=== PATIENT | male | born 1940 | race Caucasian/White ===

== ENCOUNTER → 2016-10-11 | Outpatient (CLI) | payer OTHER ==
[~2016-10-11] MED LIST: AMLO-110 PO; ASCA500 PO; ASPI81TA28 PO; ATOR10TA82 PO; BARB1CAP PO; BNC40 PO; CALC600T37 PO; CHOL100010 PO; CHOL1TAB42 PO; CHOLEAST PO; CIPR-255 PO; CMD5 PO; COEN150C PO; CYAN500T PO; ERGO500011 PO; FINA5TAB PO; FLM4 PO; FLV400 PO; HALO0.052 TOP; HYDR-5688 PO; LORA-741 PO; LOSA1TAB38 PO; LUTEIN PO; MISCTAB27 PO; MULT-506 PO; MULTI; NIAC500T11 PO; OMEG10007 PO; POLYSOL4 OPB; PRAS50CA3 PO; RIVA1TAB PO; SAW1CAP11 PO; SILO8CAP PO; TESTOSTERONE 50 MG; ZEAXANTHIN PO; ZINC PO; [UNRECOGNIZED DRUG - CODE] PO; [UNRECOGNIZED DRUG - OTHER]; [UNRECOGNIZED DRUG - OTHER]; [UNRECOGNIZED DRUG - OTHER]; [UNRECOGNIZED DRUG - OTHER]; [UNRECOGNIZED DRUG - OTHER]; [UNRECOGNIZED DRUG - OTHER]; [UNRECOGNIZED DRUG - OTHER] PO; [UNRECOGNIZED DRUG - OTHER] PO; [UNRECOGNIZED DRUG - OTHER] PO
[2016-10-11 12:41] LABS: ALT/SGPT 37 U/L (12-78); AST/SGOT 17 U/L (15-37); BLOOD UREA NITROGEN 20 mg/dl (7-18); BUN/CREATININE RATIO 21.4 (10-20); CARBON DIOXIDE 27 mmol/L (21-32); CHLORIDE 108 mmol/L (98-107); CHOLESTEROL 169 mg/dl (0-200); CREATININE 0.94 mg/dl (0.60-1.40); GLUCOSE 99 mg/dl (70-99); POTASSIUM 4.3 mmol/L (3.5-5.1); SODIUM 140 mmol/L (136-145); TRIGLYCERIDES 189 mg/dl (0-150); VERY LOW DENSITY LIPOPROT CALC 38 mg/dl
[2016-10-11 12:45] LABS: CALCIUM 8.8 mg/dl (8.5-10.1)
[2016-10-11 12:46] LABS: CHOLESTEROL/HDL RATIO 4.2; HDL CHOLESTEROL 40 mg/dl; LDL CHOLESTEROL CALCULATED 91 mg/dl
== END | disposition home or self-care (01) ==
LOC: C.LAB1850 09:23
PROVIDERS: ATTEND Internal Medicine
DX: E55.9 Vitamin D deficiency, unspecified (principal); I10 Essential (primary) hypertension; R97.20 Elevated prostate specific antigen [PSA]; E78.5 Hyperlipidemia, unspecified; I65.29 Occlusion and stenosis of unspecified carotid artery

== ENCOUNTER → 2016-10-23 | Outpatient (CLI) | payer OTHER ==
[2016-10-23 13:26] LABS: BASO % 0.4 %; BASO ABS # 0.02 K/uL (0-0.2); COMPLETE YES; EOS % 0.5 %; HEMATOCRIT 44.9 % (42-52); IG% 0.7 %; LYMPH % 23.5 %; LYMPH ABS # 1.33 K/uL (1.2-3.4); MEAN CELL VOLUME 90.5 fL (80-100); MEAN CORPUSCULAR HGB CONC 34.3 g/dl (32-36); MEAN PLATELET VOLUME 9.9 fL (7.4-10.4); MONO % 6.9 %; PLATELET COUNT 156 K/uL (130-400); RED BLOOD COUNT 4.96 M/uL (4.7-6.1); WHITE BLOOD COUNT 5.67 K/uL (4.8-10.8)
--- NOTE | 2016-10-30 07:04 | CODING QUERY MEDICAL NECESSITY ---
SUPPORTING DIAGNOSIS NEEDED Dr. Tolbert, A supporting diagnosis is required for the test/procedure performed on this patient in order for us to be reimbursed by the patient's insurance. Please provide a supporting diagnosis for the following test/procedure listed below next to the test name along with your signature. *If there is no additional diagnosis for this patient that would support the following test/procedure please document that below next to the test/procedure. Test(s)/Procedure(s) that require a supporting diagnosis: * ([id number]) B12 VITAMIN LEVEL DIAGNOSIS: DATE OF SERVICE: 10/23/16 Provider Signature: Date: Thank you [facility] Information Management Once completed, please kindly fax back to [phone] For questions please call [phone]
== END | disposition home or self-care (01) ==
LOC: C.LAB1850 11:50
PROVIDERS: ATTEND Internal Medicine
DX: R53.83 Other fatigue (principal)

== ENCOUNTER 2016-11-23 10:05 | Emergency (ER) | payer OTHER ==
[~2016-11-23] VITALS: Ht 172.7 cm; Wt 95.8 kg
[~2016-11-23 10:05] MED LIST changes: -AMLO-110 PO; -ASPI81TA28 PO; -BARB1CAP PO; -CALC600T37 PO; -CHOL1TAB42 PO; -CHOLEAST PO; -CIPR-255 PO; -COEN150C PO; -ERGO500011 PO; -FINA5TAB PO; -HALO0.052 TOP; -HYDR-5688 PO; -LORA-741 PO; -LOSA1TAB38 PO; -LUTEIN PO; -MISCTAB27 PO; -MULT-506 PO; -POLYSOL4 OPB; -PRAS50CA3 PO; -RIVA1TAB PO; -SAW1CAP11 PO; -SILO8CAP PO; -ZEAXANTHIN PO; -ZINC PO; -[UNRECOGNIZED DRUG - OTHER] PO; -[UNRECOGNIZED DRUG - OTHER] PO; -[UNRECOGNIZED DRUG - OTHER] PO
[2016-11-23 10:10] VITALS: TEMP 36.6; Ht 172.7 cm; Wt 95.8 kg
[2016-11-23] MEDS ORDERED: SODIUM CHLORIDE 0.9% 500ML 500 ML IV STA (10:24)
[2016-11-23] MEDS ORDERED: OPTIRAY 320 IV PRN (10:30)
[2016-11-23] MEDS ORDERED: ERGO500011 PO (10:43)
[2016-11-23] MEDS ORDERED: CALC600T37 PO (10:43)
[2016-11-23] MEDS ORDERED: OMEG10007 PO (10:43)
[2016-11-23] MEDS ORDERED: ASPI81TA28 PO (10:43)
[2016-11-23] MEDS ORDERED: LORA-741 PO (10:47)
[2016-11-23] MEDS ORDERED: AMLO-110 PO (10:47)
[2016-11-23] MEDS ORDERED: SILO8CAP PO (10:47)
[2016-11-23] MEDS ORDERED: MULT-506 PO (10:47)
[2016-11-23] MEDS ORDERED: FINA5TAB PO (10:47)
[2016-11-23] MEDS ORDERED: SAW1CAP11 PO (10:47)
[2016-11-23] MEDS ORDERED: LOSA1TAB38 PO (10:47)
[2016-11-23] MEDS ORDERED: HALO0.052 TOP (10:48)
[2016-11-23 10:54] LABS: PROTHROMBIN TIME (PATIENT) 10.6 SECONDS (9.0-12.0)
[2016-11-23 11:02] LABS: BASO % 0.2 %; BASO ABS # 0.01 K/uL (0-0.2); COMPLETE YES; EOS % 0.7 %; HEMATOCRIT 42.8 % (42-52); IG% 0.7 %; LYMPH % 22.4 %; LYMPH ABS # 1.25 K/uL (1.2-3.4); MEAN CELL VOLUME 89.4 fL (80-100); MEAN CORPUSCULAR HEMOGLOBIN 31.7 pg (25-34); MEAN CORPUSCULAR HGB CONC 35.5 g/dl (32-36); MEAN PLATELET VOLUME 10.2 fL (7.4-10.4); MONO % 7.9 %; NEUT % 68.1 %; PLATELET COUNT 156 K/uL (130-400); RED BLOOD COUNT 4.79 M/uL (4.7-6.1); WHITE BLOOD COUNT 5.58 K/uL (4.8-10.8)
[2016-11-23 11:10] LABS: ALT/SGPT 40 U/L (12-78); AST/SGOT 22 U/L (15-37); BLOOD UREA NITROGEN 20 mg/dl (7-18); BUN/CREATININE RATIO 21.7 (10-20); CALCIUM 8.4 mg/dl (8.5-10.1); CARBON DIOXIDE 28 mmol/L (21-32); CHLORIDE 106 mmol/L (98-107); CREATININE 0.92 mg/dl (0.60-1.40); GLUCOSE 91 mg/dl (70-99); POTASSIUM 4.1 mmol/L (3.5-5.1); SODIUM 141 mmol/L (136-145)
[2016-11-23 11:15] LABS: ALKALINE PHOSPHATASE 87 U/L (45-117)
--- NOTE | 2016-11-23 12:15 | DIAGNOSTIC IMAGING REPORT ---
CT ANGIOGRAM OF THE CHEST CLINICAL HISTORY: Shortness of breath and the left lower extremity swelling. COMPARISON STUDY: 07/16/2011 TECHNIQUE: Following the IV administration of 93 mL of Optiray-320, CT angiogram of the thorax was performed from the thoracic inlet to the lung bases utilizing the pulmonary embolus protocol. Images are reviewed in the axial, sagittal, and coronal planes. IV contrast was administered without complication. MIP imaging was performed. CT DOSE: 562.50 mGycm FINDINGS: No pathologically enlarged axillary mediastinal or hilar lymph nodes were visualized. There was no evidence of thoracic aortic dilatation. There were no pulmonary artery filling defects to indicate acute pulmonary embolism. No pleural effusions are visualized. There was no evidence of focal pulmonary consolidation. There is a 5 mm right middle lobe pulmonary nodule. This nodule measured 4 mm in June 2011, and is therefore in all likelihood benign. IMPRESSION: 1. No evidence of acute pulmonary embolism 2. No evidence of focal pulmonary consolidation Electronically signed by: Shawn Cullen M.D. 11/23/2016 12:13 PM Dictated Date/Time: 11/23/2016 12:03 PM
--- NOTE | 2016-11-23 12:27 | DIAGNOSTIC IMAGING REPORT ---
BILATERAL LOWER EXTREMITY VENOUS DOPPLER HISTORY: swelling of lower extremities w/ known clot COMPARISON STUDY: None. FINDINGS: There is normal compressibility, flow, and augmentation within the bilateral lower extremity deep venous systems. Multiple superficial varicosities which are thrombosed within the left lower extremity. IMPRESSION: No DVT within the right or left lower extremity. Multiple thrombosed superficial varicosities within the left lower extremity. Electronically signed by: Bhanu Corcoran M.D. 11/23/2016 12:25 PM Dictated Date/Time: 11/23/2016 12:22 PM
[2016-11-23] MEDS ORDERED: RIVAROXABAN 10 MG TAB PO STA (13:30)
[2016-11-23] MEDS ORDERED: RIVA1TAB PO (14:38)
[2016-11-23 15:05] VITALS: BP 157/86; PULSE 60; O2SAT 97
--- NOTE | 2016-11-23 15:10 | EMERGENCY ROOM VISIT NOTE ---
History Report prepared by Cheryl: Deon Mann Under the Supervision of: Dr. Wellington Jain D.O. First contact with patient: 10:09 Chief Complaint: LEG PAIN,LEG INJURY Stated Complaint: LEFT LEG PAIN-FLIBITUS History of Present Illness The patient is a 76 year old male who presents to the Emergency Room with complaints of constant left leg pain beginning three days ago. He was seen in the ED in [place] for his symptoms three days ago. He had a Doppler and was found to have superficial thrombophlebitis. The patient notes that he flew to [place] about 10 days ago. He notes that he has experienced some shortness of breath. His shortness of breath occurred yesterday. Pt denies headache, change in vision, fevers, chest pain, nausea, vomiting, diarrhea, pain with urination, and melena. He has a pacemaker in place, and notes that he had it examined this past week. He has a history of PE last year following a surgery. Denies any history of diabetes or stroke. Patient has no other complaints at this time. No exertional chest pain. Source of History: patient Onset: three days ago Position: leg (left) Timing: constant Associated Symptoms: + SOB, No fevers, No chest pain, No nausea, No vomiting , No diarrhea, No urinary symptoms Review of Systems See HPI for pertinent positives & negatives. A total of 10 systems reviewed and were otherwise negative. Past Medical & Surgical Medical Problems: (1) QUADRACEPS TENDON REPAIR Family History No pertinent family history stated. Social History Alcohol Use: none Marital Status: Occupation Status: retired Current/Historical Medications Scheduled Amlodipine (Norvasc), 7.5 MG PO DAILY Aspirin (Aspirin Ec), 81 MG PO DAILY Calcium (Calcium), 600 MG PO DAILY Cyanocobalamin (Vitamin B-12), 500 MCG PO DAILY Ergocalciferol (Vitamin D 90044 Unit), 50,000 UNIT PO WK Finasteride (Proscar), 5 MG PO DAILY Fish Oil (Riesel-3), 1,000 MG PO DAILY Halobetasol Propionate (Ultravate), 1 APPLN TOP DAILY Losartan Potassium (Cozaar), 100 MG PO DAILY Multivitamin (Multivitamin), 1 TAB PO DAILY Niacin (Niacin), 500 MG PO DAILY Rivaroxaban (Xarelto), 10 MG PO DAILY [place] (Serenoa Repens) (Saw [place]), 500 MG PO UD Silodosin (Rapaflo), 1 CAP PO DAILY Scheduled PRN Lorazepam (Ativan), 0.25-0.5 MG PO BID PRN for Anxiety Allergies Coded Allergies: Sesame Oil (Verified Allergy, Unknown, ., 11/23/16) Physical Exam Vital Signs Date Time Temp Pulse Resp B/P (MAP) Pulse Ox O2 Delivery O2 Flow Rate FiO2 11/23/16 14:15 60 18 161/81 95 Room Air 11/23/16 12:30 65 18 162/60 98 Room Air 11/23/16 10:59 60 18 140/76 99 Room Air 11/23/16 10:10 36.6 60 18 177/78 95 Room Air Physical Exam GENERAL: Sitting up in bed, disheveled, non-toxic, no acute distress EYE EXAM: normal conjunctiva OROPHARYNX: no exudate, no erythema, lips, buccal mucosa, and tongue normal and mucous membranes are moist NECK: supple, no nuchal rigidity, no adenopathy, non-tender LUNGS: Clear to auscultation. Normal chest wall mechanics HEART: no murmurs, S1 normal and S2 normal ABDOMEN: abdomen soft, non-tender, normo-active bowel sounds, no masses, no rebound or guarding. BACK: Back is symmetrical on inspection and there is no deformity, no midline tenderness, no CVA tenderness. SKIN: no rashes and no bruising UPPER EXTREMITIES: upper extremities are grossly normal. LOWER EXTREMITIES: Left calf with pitting edema. Mild fullness along the anterior medial superficial veins with erythema just distal to the knee. NEURO EXAM: Normal sensorium, cranial nerves II-XII grossly intact, normal speech, no gross weakness of arms, no gross weakness of legs. Medical Decision & Procedures ER Provider Diagnostic Interpretation: Radiology results as stated below per my review and the radiologist's interpretation: BILATERAL LOWER EXTREMITY VENOUS DOPPLER FINDINGS: There is normal compressibility, flow, and augmentation within the bilateral lower extremity deep venous systems. Multiple superficial varicosities which are thrombosed within the left lower extremity. IMPRESSION: No DVT within the right or left lower extremity. Multiple thrombosed superficial varicosities within the left lower extremity. Electronically signed by: Bhanu Corcoran M.D. CT ANGIOGRAM OF THE CHEST FINDINGS: No pathologically enlarged axillary mediastinal or hilar lymph nodes were visualized. There was no evidence of thoracic aortic dilatation. There were no pulmonary artery filling defects to indicate acute pulmonary embolism. No pleural effusions are visualized. There was no evidence of focal pulmonary consolidation. There is a 5 mm right middle lobe pulmonary nodule. This nodule measured 4 mm in June 2011, and is therefore in all likelihood benign. IMPRESSION: 1. No evidence of acute pulmonary embolism 2. No evidence of focal pulmonary consolidation Electronically signed by: Shawn Cullen M.D. Laboratory Results 11/23/16 10:35 Red Blood Count 4.79, Mean Corpuscular Volume 89.4, Mean Corpuscular Hemoglobin 31.7, Mean Corpuscular Hemoglobin Concent 35.5, Mean Platelet Volume 10.2, Neutrophils (%) (Auto) 68.1, Lymphocytes (%) (Auto) 22.4, Monocytes (%) (Auto) 7.9, Eosinophils (%) (Auto) 0.7, Basophils (%) (Auto) 0.2, Neutrophils # (Auto) 3.80, Lymphocytes # (Auto) 1.25, Monocytes # (Auto) 0.44, Eosinophils # (Auto) 0.04, Basophils # (Auto) 0.01 11/23/16 10:35 Test 11/23/16 10:24 11/23/16 10:35 Creatine Kinase MB Ratio (0-3.0) White Blood Count 5.58 K/uL (4.8-10.8) Red Blood Count 4.79 M/uL (4.7-6.1) Hemoglobin 15.2 g/dL (14.0-18.0) Hematocrit 42.8 % (42-52) Mean Corpuscular Volume 89.4 fL (80-100) Mean Corpuscular Hemoglobin 31.7 pg (25-34) Mean Corpuscular Hemoglobin Concent 35.5 g/dl (32-36) Platelet Count 156 K/uL (130-400) Mean Platelet Volume 10.2 fL (7.4-10.4) Neutrophils (%) (Auto) 68.1 % Lymphocytes (%) (Auto) 22.4 % Monocytes (%) (Auto) 7.9 % Eosinophils (%) (Auto) 0.7 % Basophils (%) (Auto) 0.2 % Neutrophils # (Auto) 3.80 K/uL (1.4-6.5) Lymphocytes # (Auto) 1.25 K/uL (1.2-3.4) Monocytes # (Auto) 0.44 K/uL (0.11-0.59) Eosinophils # (Auto) 0.04 K/uL (0-0.5) Basophils # (Auto) 0.01 K/uL (0-0.2) RDW Standard Deviation 43.8 fL (36.4-46.3) RDW Coefficient of Variation 13.2 % (11.5-14.5) Immature Granulocyte % (Auto) 0.7 % Immature Granulocyte # (Auto) 0.04 K/uL (0.00-0.02) Prothrombin Time 10.6 SECONDS (9.0-12.0) Prothromb Time International Ratio 1.0 (0.9-1.1) Anion Gap 7.0 mmol/L (3-11) Est Creatinine Clear Calc Drug Dose 79.1 ml/min Estimated GFR () 94.6 Estimated GFR (Non- 81.6 BUN/Creatinine Ratio 21.7 (10-20) Calcium Level 8.4 mg/dl (8.5-10.1) Total Bilirubin 0.8 mg/dl (0.2-1) Direct Bilirubin 0.1 mg/dl (0-0.2) Aspartate Amino Transf (AST/SGOT) 22 U/L (15-37) Alanine Aminotransferase (ALT/SGPT) 40 U/L (12-78) Alkaline Phosphatase 87 U/L (45-117) Creatine Kinase MB 5.7 ng/ml (0.5-3.6) Troponin I < 0.015 ng/ml (0-0.045) Total Protein 7.2 gm/dl (6.4-8.2) Albumin 3.8 gm/dl (3.4-5.0) Laboratory results per my review. Medications Administered Medications (Trade) Dose Ordered Sig/Kimberly Route Start Time Stop Time Status Last Admin Dose Admin Sodium Chloride 500 ml @ 999 mls/hr Q31M STAT IV 11/23/16 10:24 11/23/16 10:54 DC 11/23/16 10:37 999 MLS/HR Rivaroxaban (Xarelto Tab) 10 mg DAILY STAT PO 11/23/16 13:30 11/23/16 13:32 DC 11/23/16 14:14 10 MG ECG Indication: SOB/dyspnea Rate (beats per minute): 60 Rhythm: other (AV paced) Findings: LBBB, left axis deviation ED Course ED COURSE: Vital signs were reviewed and showed hypertension The patients medical record was reviewed The above diagnostic studies were performed and reviewed. ED treatments and interventions as stated above. 1018: The patient was evaluated in room B3B. A complete history and physical examination was performed. 1024: Ordered Sodium Chloride 500 ml @ 999 mls/hr IV. 1310: I reassessed the patient. He is resting comfortably. He agrees with being started on Xarelto. The patient has no history of stroke or diabetes, denies a history of GI bleeding, urinary bleeding, or recent traumas. 1330: Ordered Xarelto Tab 10 mg PO. 1435: Upon reevaluation, the patient is resting comfortably. I discussed my findings with the patient and he understands and agrees with the treatment plan. Based on the patients age, coexisting illnesses, exam and lab findings the decision to treat as an outpatient was made. The patient remained stable while under my care. The patient appeared well at the time of discharge. Medical Decision Differential diagnosis: Etiologies such as DVT, musculoskeletal, infection, joint effusion, trauma, lymphedema, idiopathic, CHF, as well as others were entertained. Patient is a 76-year-old male who presents the ER for swelling in his left calf. He was seen at an outside facility and found to have a superficial thrombophlebitis. This is likely secondary to history of to [place]. Symptoms have been worsening. He presents today. Ultrasound shows worsening of the superficial thrombophlebitis which is now encompassing several superficial veins. CBC along with BMP, LFTs and bilirubin were unremarkable. Troponin was negative. CK-MB was slightly elevated at 5.7. EKG was AV paced. Pacemaker was interrogated and showed no acute pathology. INR was normal. I discussed his case with Dr. hogue from hematology and with his history of PE and low risk factor for bleeding she recommended starting a 10 a inhibitor for 6 weeks. I offered the patient this first close follow-up with his PCP and he preferred to start rivaroxaban. I then updated PCP who will follow him up on Saturday morning. I discussed his elevation in CK-MB with cardiology and they recommended not repeating his troponin since it was negative it is much more sensitive than CK-MB. He was given a prescription for 6 weeks. No GI or bleeding. No recent surgeries. He does not fall frequently. I explained the risk and benefits patient was discharged to follow-up with his PCP with a superficial thrombophlebitis. Discussed with Pt concerning signs and symptoms to watch out for. Pt was instructed to follow up with their PCP and discussed with the patient their option to return to the ED at anytime for persistent or worsening symptoms. The appropriate anticipatory guidance and out-patient management, including indications for return to the emergency department, were explained at length to the patient and understood. Consults Time Called: 1242 Consulting Physician: Dr. Zuluaga -Hematology Returned Call: [phone] I reviewed the patient's case with Dr. Zuluaga. She recommends that the patient be anticoagulated. Additional Consults: Time Called: 1350 Consulted Physician: Dr. Phillip -Cardiology Returned Call: [phone] Additional Comments: I discussed the patient's case with Dr. Phillip. He would not repeat labs despite the elevated CK MB due to the negative troponin. He feels that no follow up is needed. Time Called: 1330 Consulted Physician: Jossie Bethea PA-C -PCP Returned Call: [phone] Additional Comments: I discussed the patient's case with Jossie Bethea PA-C. Impression Primary Impression: Superficial thrombophlebitis Scribe Attestation The scribe's documentation has been prepared under my direction and personally reviewed by me in its entirety. I confirm that the note above accurately reflects all work, treatment, procedures, and medical decision making performed by me. Departure Information Dispostion Home / Self-Care Prescriptions Rivaroxaban (XARELTO) 10 Mg Tab 10 MG PO DAILY for 41 Days, #41 TAB Prov: Wellington Jain, DO 11/23/16 Referrals Juan Tolbert M.D. (PCP) Forms HOME CARE DOCUMENTATION FORM, IMPORTANT VISIT INFORMATION Patient Instructions ED Phlebitis Superficial, [facility], Rivaroxaban oral tablets Additional Instructions Please follow up with your primary care doctor with in the next 24 hours. Any worsening of your symptoms, please return to the ED immediately. This includes fevers greater than 100.4, hitting her head, falls, any trauma, confusion, headache, bloody your stool, blood in your urine or any other concerning signs or symptoms from your standpoint. Please take rivaroxaban as prescribed for a total of 6 weeks. Please stop taking your aspirin. Problem Qualifiers Primary Impression: Superficial thrombophlebitis Superficial thrombophlebitis-Involved body area: lower extremity Laterality: left Qualified Codes: I80.02 - Phlebitis and thrombophlebitis of superficial vessels of left lower extremity
[2017-02-19] MEDS ORDERED: ZINC PO (08:46)
[2017-02-19] MEDS ORDERED: [UNRECOGNIZED DRUG - OTHER] PO (08:46)
[2017-02-19] MEDS ORDERED: COEN150C PO (08:46)
[2017-02-19] MEDS ORDERED: PRAS50CA3 PO (08:46)
[2017-02-19] MEDS ORDERED: LUTEIN PO (08:46)
[2017-02-19] MEDS ORDERED: MISCTAB27 PO (08:46)
[2017-02-19] MEDS ORDERED: [UNRECOGNIZED DRUG - OTHER] PO (08:46)
[2017-02-19] MEDS ORDERED: ZEAXANTHIN PO (08:46)
[2017-02-19] MEDS ORDERED: CHOLEAST PO (08:46)
[2017-02-19] MEDS ORDERED: BARB1CAP PO (08:46)
[2017-02-19] MEDS ORDERED: ASCA500 PO (08:46)
[2017-02-19] MEDS ORDERED: [UNRECOGNIZED DRUG - OTHER] PO (08:46)
[2017-02-19] MEDS ORDERED: CHOL1TAB42 PO (08:46)
[2017-03-05] MEDS ORDERED: CIPR-255 PO (12:31)
[2017-03-05] MEDS ORDERED: HYDR-5688 PO (12:31)
== END 2016-11-23 15:06 | disposition home or self-care (01) ==
LOC: C.EDB 10:08
DX: I80.02 Phlebitis and thrombophlebitis of superficial vessels of left lower extremity (principal); Z95.0 Presence of cardiac pacemaker; Z86.711 Personal history of pulmonary embolism; Z79.82 Long term (current) use of aspirin; Z79.899 Other long term (current) drug therapy

== ENCOUNTER → 2016-11-29 | Outpatient (CLI) | payer OTHER ==
[~2016-11-29] MED LIST changes: +AMLO-110 PO; +ASPI81TA28 PO; -ATOR10TA82 PO; +BARB1CAP PO; -BNC40 PO; +CALC600T37 PO; -CHOL100010 PO; +CHOL1TAB42 PO; +CHOLEAST PO; +CIPR-255 PO; -CMD5 PO; +COEN150C PO; +ERGO500011 PO; +FINA5TAB PO; -FLM4 PO; -FLV400 PO; +HALO0.052 TOP; +HYDR-5688 PO; +LORA-741 PO; +LOSA1TAB38 PO; +LUTEIN PO; +MISCTAB27 PO; +MULT-506 PO; -MULTI; +POLYSOL4 OPB; +PRAS50CA3 PO; +RIVA1TAB PO; +SAW1CAP11 PO; +SILO8CAP PO; -TESTOSTERONE 50 MG; +ZEAXANTHIN PO; +ZINC PO; -[UNRECOGNIZED DRUG - CODE] PO; -[UNRECOGNIZED DRUG - OTHER]; -[UNRECOGNIZED DRUG - OTHER]; -[UNRECOGNIZED DRUG - OTHER]; -[UNRECOGNIZED DRUG - OTHER]; -[UNRECOGNIZED DRUG - OTHER]; -[UNRECOGNIZED DRUG - OTHER]; +[UNRECOGNIZED DRUG - OTHER] PO; +[UNRECOGNIZED DRUG - OTHER] PO; +[UNRECOGNIZED DRUG - OTHER] PO
[2016-11-29 20:03] LABS: LYME DISEASE AB IGG NEG (NEG); LYME DISEASE AB IGM NEG (NEG)
== END | disposition home or self-care (01) ==
LOC: C.LAB1850 13:31
PROVIDERS: ATTEND Internal Medicine
DX: I80.9 Phlebitis and thrombophlebitis of unspecified site (principal)

== ENCOUNTER → 2016-12-21 | Outpatient (CLI) | payer OTHER ==
[~2016-12-21] MED LIST changes: +ERGO1CAP41 PO; -ERGO500011 PO
--- NOTE | 2016-12-21 10:05 | DIAGNOSTIC IMAGING REPORT ---
LEFT LOWER EXTREMITY VENOUS DOPPLER HISTORY: LEFT THROMBOPHLEBITIS COMPARISON STUDY: Venous Doppler. FINDINGS: There is normal compressibility, flow, and augmentation within the left lower extremity deep venous system. Multiple thrombosed superficial varicosities within the left leg have almost completely resolved. IMPRESSION: No DVT within the left lower extremity. Multiple thrombosed superficial varicosities within the left leg seen on the prior study have almost completely resolved. Electronically signed by: Bhanu Corcoran M.D. 12/21/2016 10:04 AM Dictated Date/Time: 12/21/2016 10:02 AM
== END | disposition home or self-care (01) ==
LOC: C.ULTR 09:12
PROVIDERS: ATTEND Internal Medicine
DX: I80.02 Phlebitis and thrombophlebitis of superficial vessels of left lower extremity (principal)

== ENCOUNTER 2017-03-05 10:59 | Day surgery (SDC) | payer OTHER ==
[2017-02-19 08:47] VITALS: BMI 32.0
--- NOTE | 2017-02-19 09:22 | PAT Medication Instructions ---
Service Date Feb 19, 2017. Current Home Medication List Amlodipine (Norvasc), 7.5 MG PO QAM Ascorbic Acid (Vitamin C), 1,000 MG PO QAM Aspirin (Aspirin Ec), 81 MG PO QPM [place]berry-[place] Grape-Goldense (Berberine Complex 200-200-50 mg), 1 CAP PO QAM Cholecalciferol (Vitamin D), 1 TAB PO QPM Coenzyme Q10 (Ubidecarenone) (Co Q-10), 300 MG PO QAM Cyanocobalamin (Vitamin B-12), 500 MCG PO QAM Finasteride (Proscar), 5 MG PO QAM Lorazepam (Ativan), 0.25-0.5 MG PO BID PRN for Anxiety Losartan Potassium (Cozaar), 100 MG PO QPM Misc Natural Products (Prostate Support), 1 TAB PO BID Multivitamin (Multivitamin), 1 TAB PO QAM Prasterone (Dhea) (Dhea 50), 1 CAP PO QAM [place] (Serenoa Repens) ([place]), 500 MG PO QAM Silodosin (Rapaflo), 1 CAP PO QPM [Ar-Encap], 1,500 MG PO QAM [Choleast], 2.4 GM PO QPM [Glycinate], 300 MG PO QPM [Ultrachrome], 500 MG PO QAM [Zeazanthin/Lutein], 1 TAB PO QAM [Zinc], 50 MG PO QAM Medication Instructions For Your Scheduled Surgery - Check with surgeon/snuff drier for instructions: Aspirin (Aspirin Ec), 81 MG PO QPM - Hold the following medications 2 weeks prior to surgery: [Zeazanthin/Lutein], 1 TAB PO QAM [Ar-Encap], 1,500 MG PO QAM [Choleast], 2.4 GM PO QPM [Glycinate], 300 MG PO QPM [Ultrachrome], 500 MG PO QAM [place] ([place]ens) (S[place]), 500 MG PO QAM Prasterone (Dhea) (Dhea 50), 1 CAP PO QAM Misc Natural Products (Prostate Support), 1 TAB PO BID [place] Grape-Goldense (Berberine Complex 200-200-50 mg), 1 CAP PO QAM Coenzyme Q10 (Ubidecarenone) (Co Q-10), 300 MG PO QAM - Hold the following medications the morning of surgery: Ascorbic Acid (Vitamin C), 1,000 MG PO QAM Cholecalciferol (Vitamin D), 1 TAB PO QPM Cyanocobalamin (Vitamin B-12), 500 MCG PO QAM Finasteride (Proscar), 5 MG PO QAM Multivitamin (Multivitamin), 1 TAB PO QAM [Zinc], 50 MG PO QAM - Take the following medications the morning of surgery with a sip of water: Lorazepam (Ativan), 0.25-0.5 MG PO BID PRN for Anxiety (if needed) Amlodipine (Norvasc), 7.5 MG PO QAM - Hold the following medications as scheduled the night before surgery: Losartan Potassium (Cozaar), 100 MG PO QPM - Take the following medications as scheduled the night before surgery: Silodosin (Rapaflo), 1 CAP PO QPM Lorazepam (Ativan), 0.25-0.5 MG PO BID PRN for Anxiety (if needed) If you have any questions please call us at [phone] or [phone] or [phone]
[2017-02-19 09:43] LABS: URINE APPEARANCE CLEAR (CLEAR); URINE BILIRUBIN NEG (NEG); URINE COLOR YELLOW; URINE NITRITE NEG (NEG); URINE PH 6.5 (4.5-7.5); URINE SPECIFIC GRAVITY 1.018 (1.000-1.030); UROBILINOGEN NEG (NEG)
[2017-02-19 09:48] LABS: MANUAL MICROSCOPIC REQUIRED? NO; REVIEW REQ? NO
--- NOTE | 2017-02-19 09:49 | DIAGNOSTIC IMAGING REPORT ---
CHEST PREADMISSION(PA/LAT) HISTORY: Preop. COMPARISON: Chest 07/27/2013. FINDINGS: The lungs are clear. Cardiac silhouette is normal in size. No pleural effusions. No pneumothorax. Left-sided dual-chamber pacemaker. IMPRESSION: No acute process. Electronically signed by: Bhanu Corcoran M.D. 02/19/2017 9:47 AM Dictated Date/Time: 02/19/2017 9:44 AM
[2017-02-19 09:50] LABS: BASO % 0.2 %; BASO ABS # 0.01 K/uL (0-0.2); COMPLETE YES; EOS % 0.8 %; HEMATOCRIT 45.4 % (42-52); IG% 0.6 %; LYMPH % 24.2 %; LYMPH ABS # 1.15 K/uL (1.2-3.4); MEAN CELL VOLUME 90.3 fL (80-100); MEAN CORPUSCULAR HEMOGLOBIN 31.8 pg (25-34); MEAN CORPUSCULAR HGB CONC 35.2 g/dl (32-36); MEAN PLATELET VOLUME 10.4 fL (7.4-10.4); NEUT % 65.2 %; PLATELET COUNT 154 K/uL (130-400); RED BLOOD COUNT 5.03 M/uL (4.7-6.1); WHITE BLOOD COUNT 4.76 K/uL (4.8-10.8)
[2017-02-19 10:27] LABS: BUN/CREATININE RATIO 20.9 (10-20); CALCIUM 8.8 mg/dl (8.5-10.1); CREATININE 0.97 mg/dl (0.60-1.40); POTASSIUM 4.4 mmol/L (3.5-5.1)
[~2017-03-05] VITALS: Ht 172.7 cm; Wt 95.8 kg
[~2017-03-05 10:59] MED LIST changes: -CALC600T37 PO; -CIPR-255 PO; +CIPROFLOXACIN / D5W 400 MG IV SCH; -ERGO1CAP41 PO; -HALO0.052 TOP; -HYDR-5688 PO; +LACTATED RINGER'S 1000ML 1,000 ML IV SCH; -NIAC500T11 PO; -OMEG10007 PO; -POLYSOL4 OPB; -RIVA1TAB PO
[2017-03-05 11:15] VITALS: BP 164/81; PULSE 70; TEMP 36.9; O2SAT 97; Ht 172.7 cm; Wt 95.8 kg
[2017-03-05] MEDS ORDERED: ONDANSETRON INJ 2 MG/ML 2 ML VIAL IV PRN (11:30)
[2017-03-05] MEDS ORDERED: NALOXONE HCL 0.4 MG/1 ML VIAL/CARP IV PRN (11:30)
[2017-03-05] MEDS ORDERED: POLYSOL4 OPB (11:30)
[2017-03-05] MEDS ORDERED: ATROPINE SULFATE 0.1 MG/ML 5ML SYR IV PRN (11:30)
[2017-03-05] MEDS ORDERED: EpHEDrine SULFATE INJ 50 MG/ML AMP IV PRN (11:30)
[2017-03-05] MEDS ORDERED: HYDROmorphone INJ 2 MG/ML SYR/VIAL IV PRN (11:30)
[2017-03-05] MEDS ORDERED: FLUMAZENIL 0.1 MG/1 ML 10 ML VIAL IV PRN (11:30)
[2017-03-05] MEDS ORDERED: PHENYLEPHRINE 100MCG/ML 5ML SYR IV PRN (11:30)
[2017-03-05] MEDS ORDERED: FENTANYL CITRATE INJ 50 MCG/1 ML 2 ML VIAL IV PRN (11:30)
[2017-03-05] MEDS ORDERED: MEPERIDINE HCL 25 MG/ML CARP IV PRN (11:30)
[2017-03-05] MEDS ORDERED: LABETALOL HCL IV 5 MG/ML 20ML IV PRN (11:30)
--- NOTE | 2017-03-05 11:51 | History & Physical Bridge Note ---
H&P Re-Evaluation Bridge Note: I have examined the patient, reviewed the History & Physical and in the interval since the performance of the History & Physical I have noted the following changes of clinical significance: No changes noted
[2017-03-05] MEDS ORDERED: PROPOFOL IV EMULSION 10 MG/ML 20 ML VIAL IV ONE (12:07)
[2017-03-05] MEDS ORDERED: LIDOCAINE HCL 2% 2 ML VIAL (20MG/ML) ONE (12:07)
[2017-03-05] MEDS ORDERED: ONDANSETRON INJ 2 MG/ML 2 ML VIAL ONE (12:07)
[2017-03-05] MEDS ORDERED: MIDAZOLAM HCL 1 MG/ML 2ML VIAL ONE (12:08)
[2017-03-05] MEDS ORDERED: FENTANYL CITRATE INJ 50 MCG/1 ML 2 ML VIAL ONE (12:08)
[2017-03-05] MEDS ORDERED: CIPR-255 PO (12:31)
[2017-03-05] MEDS ORDERED: HYDR-5688 PO (12:31)
--- NOTE | 2017-03-05 12:33 | Discharge Instructions ---
Discharge Instructions Date of Service Mar 05, 2017. Admission Reason for Admission: Benign Prostatic Hypertrophy Discharge Discharge Diagnosis / Problem: BPH Discharge Goals Goal(s): Decrease discomfort, Improve function, Increase independence, Improve disease control Activity Recommendations Activity Limitations: resume your previous activity Lifting Limitations: none Exercise/Sports Limitations: none May Resume Sexual Activity: when tolerated Shower/Bathe: no limitations Driving or Machine Use: resume 1 day after discharge . Instructions / Follow-Up Instructions / Follow-Up Please keep your previously scheduled follow up appointment with Dr. Weeks Discharge Diet Recommended Diet: Regular Diet Pending Studies Studies pending at discharge: no Medical Emergencies . Who to Call and When: Medical Emergencies: If at any time you feel your situation is an emergency, please call 911 immediately. . Non-Emergent Contact Non-Emergency issues call your: Urologist Call Non-Emergent contact if: you have a fever, temperature is above 101.5, your pain is not controlled, your pain is worsening . . "Provider Documentation" section prepared by Tonny Luna. . VTE Core Measure Inpt VTE Proph given/why not?: Treatment not indicated [place] Drug Monitoring Program Search Results: patient reviewed within database, no issues identified
[2017-03-05 13:00] VITALS: BP 110/54; PULSE 60; TEMP 36.5; O2SAT 97
[2017-03-05] MEDS ORDERED: SODIUM CHLORIDE 0.9% 1000ML 1,000 ML IV SCH (13:05)
--- NOTE | 2017-03-05 13:07 | [facility] Operative Report ---
Operative Report Operative Date Mar 05, 2017. Pre-Operative Diagnosis Benign Prostatic Hyperlasia Post-Operative Diagnosis Benign Prostatic Hyperlasia Procedure(s) Performed Cystoscopy, Urolift Surgeon Dr. Joshua Weeks Cod Clerk Surgeon(s) None Estimated Blood Loss 2ml Findings Bilobar hypertrophy Specimens None Drains none Anesthesia MAC Complication(s) None Disposition Recovery Room / PACU (stable) Indications BPH with urinary dysfunction Description of Procedure Patient was identified in the preoperative holding area, appropriate informed consents were reviewed and completed and the patient was transported to the operating suite. Upon arrival he received appropriate preoperative antibiotics in the form of ciprofloxacin. Adequate sedation was achieved, and he was placed in dorsal lithotomy position where he was sterilely prepped and draped in standard fashion. I began the case by passing a cystoscope with 0 lens. Inspection of the urethra revealed healthy-appearing mucosa without evidence of strictures. Prostate was inspected, and he was noted to have lateral lobe hypertrophy. Full inspection of the bladder was carried out. There were no tumors, stones, or other abnormalities. I then exchanged visual obturator for the first uro-lift device. The first suture was deployed on the right side of the prostate approximately 1 cm in from the bladder neck. A mirror image suture was then deployed on the left. A third suture was placed adjacent to the verumontanum on the right. A fourth suture was placed in a mirror image of this location on the left. There was excellent hemostasis. I reinspected the bladder and prostate and confirmed an excellent anterior channel. I attest to the content of the Intraoperative Record and any orders documented therein. Any exceptions are noted below.
--- NOTE | 2017-03-05 13:09 | Anesthesiology Progress Note ---
Anesthesia Post Op Note Date & Time Mar 05, 2017 at 13:09 Vital Signs Pain Intensity: 0 Vital Signs Past 12 Hours Date Time Temp Pulse Resp B/P (MAP) Pulse Ox O2 Delivery O2 Flow Rate FiO2 03/05/17 11:15 36.9 70 20 164/81 (108) 97 Room Air Notes Mental Status: alert / awake / arousable, participated in evaluation Pt Amnestic to Procedure: Yes Nausea / Vomiting: adequately controlled Pain: adequately controlled Airway Patency, RR, SpO2: stable & adequate BP & HR: stable & adequate Hydration State: stable & adequate Anesthetic Complications: no major complications apparent
[2017-03-05] MEDS ORDERED: OXYCODONE/ACETAMINOPHEN 5-325 TAB PO PRN ×2 (13:15)
[2017-03-05] MEDS ORDERED: ACETAMINOPHEN 325 MG TAB PO PRN (13:15)
[2017-03-05 13:30] VITALS: BP 138/70; PULSE 65; O2SAT 98
== END 2017-03-05 14:15 | disposition home or self-care (01) ==
LOC: C.ACU 10:59
PROVIDERS: ATTEND Urology
DX: N40.0 Benign prostatic hyperplasia without lower urinary tract symptoms (principal); I65.29 Occlusion and stenosis of unspecified carotid artery; I44.2 Atrioventricular block, complete; I10 Essential (primary) hypertension; E78.5 Hyperlipidemia, unspecified; E55.9 Vitamin D deficiency, unspecified; I80.9 Phlebitis and thrombophlebitis of unspecified site; R60.0 Localized edema; Z95.0 Presence of cardiac pacemaker; Z79.899 Other long term (current) drug therapy

== ENCOUNTER → 2017-04-08 | Outpatient (CLI) | payer OTHER ==
[~2017-04-08] MED LIST changes: +CIPR-255 PO; -CIPROFLOXACIN / D5W 400 MG IV SCH; +HYDR-5688 PO; -LACTATED RINGER'S 1000ML 1,000 ML IV SCH; +POLYSOL4 OPB
[2017-04-08 10:41] LABS: BASO % 0.2 %; BASO ABS # 0.01 K/uL (0-0.2); COMPLETE YES; HEMATOCRIT 46.6 % (42-52); IG% 0.8 %; LYMPH % 25.2 %; LYMPH ABS # 1.27 K/uL (1.2-3.4); MEAN CELL VOLUME 90.1 fL (80-100); MEAN CORPUSCULAR HEMOGLOBIN 31.1 pg (25-34); MEAN CORPUSCULAR HGB CONC 34.5 g/dl (32-36); MEAN PLATELET VOLUME 10.2 fL (7.4-10.4); MONO % 8.3 %; NEUT % 64.5 %; PLATELET COUNT 156 K/uL (130-400); RED BLOOD COUNT 5.17 M/uL (4.7-6.1); WHITE BLOOD COUNT 5.04 K/uL (4.8-10.8)
[2017-04-08 11:12] LABS: ALT/SGPT 42 U/L (12-78); AST/SGOT 20 U/L (15-37); BLOOD UREA NITROGEN 20 mg/dl (7-18); BUN/CREATININE RATIO 23.4 (10-20); CALCIUM 8.4 mg/dl (8.5-10.1); CARBON DIOXIDE 27 mmol/L (21-32); CHLORIDE 105 mmol/L (98-107); CREATININE 0.87 mg/dl (0.60-1.40); GLUCOSE 97 mg/dl (70-99); SODIUM 139 mmol/L (136-145)
[2017-04-08 11:14] LABS: CHOLESTEROL 177 mg/dl (0-200); CHOLESTEROL/HDL RATIO 5.2; HDL CHOLESTEROL 34 mg/dl; LDL CHOLESTEROL CALCULATED 92 mg/dl; TRIGLYCERIDES 255 mg/dl (0-150); VERY LOW DENSITY LIPOPROT CALC 51 mg/dl
== END | disposition home or self-care (01) ==
LOC: C.LAB1850 09:45
PROVIDERS: ATTEND Internal Medicine
DX: E78.5 Hyperlipidemia, unspecified (principal); I44.2 Atrioventricular block, complete; E55.9 Vitamin D deficiency, unspecified; I10 Essential (primary) hypertension

== ENCOUNTER → 2017-10-08 | Outpatient (CLI) | payer OTHER ==
[~2017-10-08] MED LIST changes: -HYDR-5688 PO
[2017-10-08 12:25] LABS: HEMATOCRIT 46.9 % (42-52); HEMOGLOBIN 16.5 g/dL (14.0-18.0); MEAN CELL VOLUME 89.3 fL (80-100); MEAN CORPUSCULAR HEMOGLOBIN 31.4 pg (25-34); MEAN CORPUSCULAR HGB CONC 35.2 g/dl (32-36); MEAN PLATELET VOLUME 10.8 fL (7.4-10.4); PLATELET COUNT 149 K/uL (130-400); RED CELL DISTRIBUTION WIDTH CV 13.9 % (11.5-14.5); WHITE BLOOD COUNT 5.28 K/uL (4.8-10.8)
[2017-10-08 12:59] LABS: BLOOD UREA NITROGEN 21 mg/dl (7-18); CALCIUM 8.4 mg/dl (8.5-10.1); CARBON DIOXIDE 26 mmol/L (21-32); CREATININE 0.88 mg/dl (0.60-1.40); GLUCOSE 102 mg/dl (70-99); POTASSIUM 4.1 mmol/L (3.5-5.1); SODIUM 138 mmol/L (136-145)
[2017-10-08 13:06] LABS: ALT/SGPT 32 U/L (12-78); AST/SGOT 16 U/L (15-37); CHOLESTEROL 137 mg/dl (0-200); LDL CHOLESTEROL CALCULATED 82 mg/dl
== END | disposition home or self-care (01) ==
LOC: C.LAB1850 10:26
PROVIDERS: ATTEND Urology
DX: E78.5 Hyperlipidemia, unspecified (principal); I10 Essential (primary) hypertension; R35.1 Nocturia; N40.0 Benign prostatic hyperplasia without lower urinary tract symptoms